=== PATIENT | female | born 1935 | race Caucasian/White ===

== ENCOUNTER → 2018-04-08 | Outpatient (CLI) | payer SELFPAY | END | disposition home or self-care (01) | LOC: LAB 07:45 → LAB SHORT 07:45 | DX: R30.0 Dysuria (principal) | CPT/HCPCS: 87077; 87086; 87186 ==

== ENCOUNTER → 2020-07-18 | Outpatient (CLI) | payer OTHER ==
[2020-07-18 15:22] LABS: Source, Urine Clean Catch
[2020-07-18 16:24] LABS: Appearance, Urine Hazy (Clear); Bilirubin, Urine Neg (Neg); Blood, Urine Neg (Neg); Color, Urine Yellow (P-Yellow); Glucose Qualitative, Urine Neg (Neg); Ketones, Urine Neg (Neg); Leukocyte Esterase, Urine 2+ (Neg); Nitrite, Urine Neg (Neg); Protein, Urine Neg (Neg); Specific Gravity, Urine 1.015 (1.003-1.022); Urobilinogen, Urine NORM (Normal)
[2020-07-18 16:54] LABS: Bacteria Mod /hpf; Red Blood Cells, Urine Not Seen /hpf (0-2); Squamous Epithelial Cells Many /hpf (Few)
== END ==
LOC: OLS 15:20 → LAB SHORT 15:20
PROVIDERS: Internal Medicine
DX: N39.0 Urinary tract infection, site not specified (principal)
CPT/HCPCS: 81001; 87086

== ENCOUNTER → 2022-10-18 | Outpatient (CLI) | payer OTHER | LOC: LAB SHORT 15:42 → LAB 15:42 | DX: N39.0 Urinary tract infection, site not specified (principal) | CPT/HCPCS: 87077; 87086; 87186 ==

== ENCOUNTER 2023-10-27 18:40 | Inpatient (IN) | payer OTHER ==
[~2023-10-27] VITALS: Ht 149.9 cm; Wt 68.5 kg
[2023-10-27 19:24] LABS: BASOPHILS ABSOLUTE AUTO 0.04 K/mm3 (0.00-0.23); BASOPHILS PERCENT AUTO 0 % (0-2); EOSINOPHILS PERCENT AUTO 0 % (0-6); Hematocrit 54.3 % (33.0-51.0); Hemoglobin 17.5 g/dL (11.5-16.0); IMMATURE GRAN ABSOLUTE AUTO 0.16 K/mm3 (0.00-0.10); IMMATURE GRAN PERCENT AUTO 1 % (0-1); LYMPHOCYTES PERCENT AUTO 3 % (21-46); MONOCYTES ABSOLUTE AUTO 2.06 K/mm3 (0.16-1.47); MONOCYTES PERCENT AUTO 9 % (4-13); Mean Corpuscular HGB 28.1 pg (26.0-34.0); Mean Corpuscular HGB Conc 32.2 g/dL (31.5-36.5); Mean Corpuscular Volume 87 fL (80-100); Mean Platelet Volume 11.6 fL (9.1-12.4); NEUTROPHILS ABSOLUTE AUTO 20.66 K/mm3 (1.96-9.15); NEUTROPHILS PERCENT AUTO 87 % (41-73); Platelet Count 294 K/mm3 (150-400); RDW Coefficient Variation 13.3 % (11.7-14.2); RDW Standard Deviation 42.5 fL (35.1-46.3); Red Blood Cell Count 6.22 M/mm3 (3.80-5.20); White Blood Cell Count 23.72 K/mm3 (4.00-11.30)
[2023-10-27 19:37] LABS: Albumin, Blood 3.8 g/dL (3.4-5.0); Albumin/Globulin Ratio 1.2 (0.8-1.8); Bilirubin, Total 1.3 mg/dL (0.1-1.0); Bun/Creatinine Ratio 40.2 (12.0-20.0); Calcium, Blood 9.1 mg/dL (8.5-10.1); Creatinine, Blood 1.12 mg/dL (0.40-1.00); Globulin, Blood 3.3 g/dL (2.2-4.0); Potassium, Blood 4.2 mmol/L (3.5-5.5); Total Protein, Blood 7.1 g/dL (6.4-8.2)
[2023-10-27] MEDS ORDERED: AMLODIPINE BESY10 MG PO (19:55)
[2023-10-27] MEDS ORDERED: BUSPIRONE HCL10 M6 PO (19:55)
[2023-10-27] MEDS ORDERED: CARBLEV250 SL (19:56)
[2023-10-27] MEDS ORDERED: VENLAFAXINE HC225 MG PO (19:56)
[2023-10-27 21:07] LABS: International Normalized Ratio 1.14; Prothrombin Time Results 12.1 Sec (9.7-11.5)
[2023-10-27 21:21] LABS: Albumin, Blood 3.4 g/dL (3.4-5.0); Albumin/Globulin Ratio 1.2 (0.8-1.8); Bilirubin, Direct 0.3 mg/dL (0.0-0.3); Bilirubin, Indirect 0.8 mg/dL (0.1-0.7); Bilirubin, Total 1.1 mg/dL (0.1-1.0); Globulin, Blood 2.8 g/dL (2.2-4.0); Magnesium, Blood 2.1 mg/dL (1.6-2.4); Phosphorus, Blood 3.6 mg/dL (2.5-4.9); Total Protein, Blood 6.2 g/dL (6.4-8.2)
[2023-10-27 21:37] LABS: Source, Urine Clean Catch
[2023-10-27 21:54] LABS: Bilirubin, Urine Neg (Neg); Blood, Urine Neg (Neg); Glucose Qualitative, Urine Neg (Neg); Ketones, Urine 1+ (Neg); Leukocyte Esterase, Urine 1+ (Neg); Nitrite, Urine Neg (Neg); Protein, Urine 2+ (Neg); Urobilinogen, Urine 1+ (Normal)
[2023-10-27 22:09] LABS: Appearance, Urine Hazy (Clear); Color, Urine Yellow (P-Yellow)
[2023-10-27 22:10] LABS: Amorphous Light (0-Heavy); Bacteria Mod /hpf; Red Blood Cells, Urine 0-2 /hpf (0-2); Squamous Epithelial Cells Few /hpf (Few); White Blood Cells, Urine 0-2 /hpf (0-5)
[2023-10-27] MEDS ORDERED: CefTRIAXone Sodium 2,000 MG in NS 100 ML IV ONE (22:20)
[2023-10-27] MEDS ORDERED: Lactated Ringer's 1,000 ML IV SCH (23:00)
[2023-10-27 23:07] LABS: Influenza A, PCR NEGATIVE (NEGATIVE); Influenza B, PCR NEGATIVE (NEGATIVE); Resp Syncytial Virus, PCR NEGATIVE (NEGATIVE); SARS-Cov-2 (COVID-19) PCR, MMC NEGATIVE (NEGATIVE)
[2023-10-28 00:07] LABS: Base Excess Venous -0.5 mmol/L; Bicarbonate Venous 24.2 mmol/L (24.0-30.0); PCO2 Venous 37.6 mmHg (38-42); pH Blood Venous 7.41 (7.34-7.37)
[2023-10-28 01:27] VITALS: BP 137/82
[2023-10-28] MEDS ORDERED: Ondansetron 4 MG SoluTab MM PRN (01:35)
[2023-10-28 03:56] VITALS: BP 146/78
[2023-10-28] MEDS ORDERED: Pantoprazole Sodium 40 MG Injection IV SCH (06:00)
--- NOTE | 2023-10-28 07:21 | NUR ---
Shift Summary Pt arrived to this unit from ED for suspected SBO. The doctor wanted to place an NG tube but pt is refusing for now, wanting to see if the situation will resolve without one. She has advanced parkinson's and demantia, she was non-verbal for me only occasionally offering a yes or no. PT's daugheter who is her caregiver and PoA was at the bedside t/o the night. Pt had some nausea and was given SL Zofran and was able to sleep well t/o the night. She is NPO. She rcvd 1,000 mL of LR last night, the order was for one bag only.
[2023-10-28 08:40] VITALS: BP 142/81
[2023-10-28] MEDS ORDERED: LEVODOPA SL SCH (09:00)
[2023-10-28] MEDS ORDERED: Enoxaparin 40 MG/0.4 ML SYR SC SCH (09:00)
[2023-10-28] MEDS ORDERED: RAPDIS SL SCH (09:00)
[2023-10-28] MEDS ORDERED: CARBIDOPA SL SCH (09:00)
[2023-10-28 13:43] VITALS: BP 120/68
[2023-10-28] MEDS ORDERED: Lactated Ringer's 1,000 ML IV SCH (14:35)
[2023-10-28] MEDS ORDERED: Levodopa/Carbidopa 250 / 25 MG 1 Tab PT SCH (15:00)
--- NOTE | 2023-10-28 18:00 | NUR ---
LATE NOTE SHIFT SUM: 10/28/23 REPORT RECEIEVED VERIFIED PT ISNT A/O RESPONDS TO TOUCH AND WILL GRAB YOUR HAND AT TIMES BUT SO FAR ISNT ACKNOWLOGING OR ANSWERING QUESTIONS. DAUGHTER AT BEDSIDE AND IS AWARE OF CONDITION. DR KIM IN TO SEE PT AND IS CURRENTLY RECOMMENDING HOLD ON SX BECAUSE HAD A BM, WOULD LIKE TO WAIT THROUGH THIS EVENING. PT SO FAR HAS HAD 2 BMS AND HAS HAD POSITIVE BOWEL SOUNDS.. ITS BEEN NOTE AND REPORTED TO MD THAT PT HAS NOT HAD PARKINSON MEDICATION FOR SEVERAL DAY AND BECAUSE PT RISK FOR ASPIRATION SL ORDERED. SL PARKINSON MEDS ARE NOT AVAILABLE SO ITS DECIDED TO TO INSERT NGT. NGT INSERTED AND PT ROBINSON WELL. 150ML GREEN BILE EVACUATED THEN PARKINSON MED GIVEN VIA NGT. SUCTION STOPPED FOR 1 HOUR THEN RESTARTED. BILE ROBINSON 350ML.
[2023-10-28 19:30] VITALS: BP 112/51
[2023-10-28] MEDS ORDERED: NS 250 ML IV PRN (20:55)
[2023-10-28] MEDS ORDERED: CefTRIAXone Sodium 2,000 MG in NS 100 ML IV SCH (21:00)
[2023-10-28] MEDS ORDERED: FentaNYL Citrate 50 MCG/ML 2 ML Injection IV PRN (22:55)
--- NOTE | 2023-10-29 04:53 | NUR ---
SHIFT SUMMARY PT NOT VERY RESPONSIVE BUT AT TIMES WILL ROUSE ENOUGH TO ANSWER QUESTIONS WITH SIMPLE RESPONSE. PT DID NOT OPEN EYES OR PARTICIPATE WITH CARE. PT NPO. NG TUBE SECURED AND REMAINS ON LOW INTERMITENT SUCTION. SCANT AMOUNT OF BROWN LIQUID IN CANISTER. PT REPOSITIONED Q2 HRS AND BRIEF CHANGED PRN. PT REMAINS ON 2L OF OXYGEN. LR INFUSING AT 75ML/HR. DAUGHTER AT BEDSIDE T/O NIGHT. BED IN LOWEST POSITION AND CALL LIGHT IN REACH.
[2023-10-29 05:13] VITALS: BP 144/53
[2023-10-29 06:08] LABS: Hematocrit 42.9 % (33.0-51.0); Hemoglobin 13.6 g/dL (11.5-16.0); Mean Corpuscular HGB 28.1 pg (26.0-34.0); Mean Corpuscular HGB Conc 31.7 g/dL (31.5-36.5); Mean Corpuscular Volume 89 fL (80-100); Mean Platelet Volume 11.9 fL (9.1-12.4); Platelet Count 185 K/mm3 (150-400); RDW Coefficient Variation 13.4 % (11.7-14.2); RDW Standard Deviation 43.8 fL (35.1-46.3); Red Blood Cell Count 4.84 M/mm3 (3.80-5.20)
[2023-10-29 06:32] LABS: Bun/Creatinine Ratio 50.2 (12.0-20.0); Calcium, Blood 8.3 mg/dL (8.5-10.1); Creatinine, Blood 0.82 mg/dL (0.40-1.00); Magnesium, Blood 2.2 mg/dL (1.6-2.4); Potassium, Blood 3.5 mmol/L (3.5-5.5)
[2023-10-29] MEDS ORDERED: Dextrose 5% 1,000 ML IV SCH (08:00)
[2023-10-29 08:23] VITALS: BP 143/68
[2023-10-29] MEDS ORDERED: Miconazole Nitrate 2% 85 GM PWD TOP SCH (09:00)
[2023-10-29] MEDS ORDERED: Levodopa/Carbidopa 250 / 25 MG 1 Tab PT SCH (09:00)
--- NOTE | 2023-10-29 09:00 | NUR ---
pt laying in bed on her side, daughter at bedside, pt is nonresponsive, and limbs are stiff, lungs are dim t/o, unable to participate in assessment, currently on 2 liters 02 via n/c, no cough noted, hrr, 2+ edema noted to b/l le, ppp faint, cap refill <3 sec, vs stable, afebrile, iv site is clear and patent, infusing fluids as ordered, btx3, hypoactive, abd flat soft nontender, purwick in place draining yellow urine, skin c/w/d, limbs are stiff, keeps eyes closed, call light in reach.
[2023-10-29 15:51] VITALS: BP 138/57
--- NOTE | 2023-10-29 18:09 | NUR ---
pt had a bed bath today, is more awake this evening, asked this nurse who are you. reoriented her, no further changes this shift. call light in reach.
[2023-10-29 19:08] VITALS: BP 137/51
[2023-10-30 03:23] VITALS: BP 150/69
[2023-10-30 05:39] LABS: Bun/Creatinine Ratio 33.9 (12.0-20.0); Calcium, Blood 8.2 mg/dL (8.5-10.1); Creatinine, Blood 0.68 mg/dL (0.40-1.00); Magnesium, Blood 2.1 mg/dL (1.6-2.4); Potassium, Blood 3.2 mmol/L (3.5-5.5)
[2023-10-30 07:11] VITALS: BP 163/67
[2023-10-30] MEDS ORDERED: Potassium Chloride 40 MEQ in NS 250 ML IV ONE (11:00)
[2023-10-30 15:38] VITALS: BP 151/82
[2023-10-30] MEDS ORDERED: VENL150ER PO (16:09)
--- NOTE | 2023-10-30 17:53 | NUR ---
SHIFT SUMMARY PATIENT ALERT AND ORIENTED TO SELF AND FAMILY. PATIENT WOKE UP MORE IN THE AFTERNOON AND WAS ABLE TO TALK WITH STAFF AND DAUGHTER. DAUGHTER AT BEDSIDE FOR WHOLE SHIFT. PATIENT IS NPO. PATIENT HAS NG CONNECTED TO LIS. PATIENT DENIES PAIN, NAUSEA AND SHORTNESS OF BREATH. PATIENT WENT FOR A SMALL BOWEL FOLLOW THROUGH TODAY. PATIENT HAS 2 VERY LARGE LOOSE BM'S AFTER STUDY WAS DONE. PATIENT IS PLEASANT AND COOPERATIVE WITH CARE.
[2023-10-30 19:22] VITALS: BP 150/78
[2023-10-31 03:45] VITALS: BP 178/81
[2023-10-31 06:17] LABS: Bun/Creatinine Ratio 26.3 (12.0-20.0); Calcium, Blood 8.4 mg/dL (8.5-10.1); Creatinine, Blood 0.61 mg/dL (0.40-1.00); Magnesium, Blood 2.1 mg/dL (1.6-2.4); Potassium, Blood 3.8 mmol/L (3.5-5.5)
--- NOTE | 2023-10-31 07:54 | NUR ---
NOC SHIFT SUMMARY PT HAD SEVERAL LOOSE BOWEL MOVEMENTS AFTER SMALL BOWEL FOLLOW THROUGH YESTERDAY. BOWEL MOVEMENTS WERE LOOSE, BUT NOT WATERY. NG TUBE TO LIS, OUTPUT IS DARK, OUTPUT IN MINIMAL. ANTICIPATING POSSIBLE DIET ADVANCEMENT TODAY. PT WAS TURNED AND CLEANED/CHANGED EVERY 2 HOURS AND REQUIRES MAX ASSIST OF 2 PEOPLE. DAUGHTER BRANDEE AT BEDSIDE ALL SHIFT AND PROVIDES PT COMFORT.
[2023-10-31] MEDS ORDERED: Dextrose 5% 1,000 ML IV SCH (08:00)
[2023-10-31 08:03] VITALS: BP 153/67
[2023-10-31] MEDS ORDERED: Levodopa/Carbidopa 250 / 25 MG 1 Tab PO SCH (13:00)
[2023-10-31 15:47] VITALS: BP 152/98
--- NOTE | 2023-10-31 17:47 | NUR ---
SHIFT SUMMARY PATIENT A/OX3 WITH SOFT MUMBLED SPEECH. ABLE TO ANSWER QUESTIONS APPROPRIATELY THIS SHIFT. PATIENT REMOVED FROM SUPPLEMENTAL OXYGEN TODAY, SPO2 WNL ON ROOM AIR. PATIENT DENIES SOB. NG TUBE REMOVED THIS AM. PUREWICK PLACED, PATIENT INCONTINENT OF BOWEL AND BLADDER. SPEECH TEHRAPY EVALUATED PATIENT TODAY AND NEW ORDERS RECIEVED FOR MINCED AND MOIST DIET, NECTAR THICK FLUIDS, PILLS CRUSHED IN APPLESAUCE. PATIENT REPOSITIONED Q 2 HOURS. DAUGHTER, BRANDEE, AT BEDSIDE. IV FLUIDS RUNNING PER MAY. PLAN TO HAVE BARIUM SWALLOW STUDY TOMORROW. PHYSICAL THERAPY EVALUATED PATIENT TODAY. NO OTHER CONCERNS AT THIS TIME.
[2023-10-31 19:40] VITALS: BP 154/87
[2023-11-01] MEDS ORDERED: LORazepam 2 MG/ML 1ML Injection IV PRN (00:15)
[2023-11-01] MEDS ORDERED: Venlafaxine HCl 75 MG CapCR PO SCH (00:20)
[2023-11-01] MEDS ORDERED: BusPIRone HCl 10 MG Tab PO SCH (00:24)
--- NOTE | 2023-11-01 01:06 | NUR ---
PT WAS VERY AGGITATED, CALLING OUT AND RESTLESS. HER DAUGHTER INDICATED SHE'D MISSED EFFEXOR AND BUSPAR FOR MANY DAYS. MADE AWARE. ATIVAN 0.5-1MG IV Q4P ORDERED ALONG W/EFFEXOR AND BUSPAR PER HOME DOSING. MEDS RECEIVED PER EMAR AND PT NOW RESTING MUCH MORE COMFORTABLY IN BED.
[2023-11-01 02:46] VITALS: BP 145/71
[2023-11-01 06:02] LABS: Bun/Creatinine Ratio 20.9 (12.0-20.0); Calcium, Blood 8.4 mg/dL (8.5-10.1); Creatinine, Blood 0.67 mg/dL (0.40-1.00); Potassium, Blood 3.3 mmol/L (3.5-5.5)
--- NOTE | 2023-11-01 06:29 | NUR ---
SUMMARY: PT A/OX2-3 AND IS PLEASANT AND COOPERATIVE W/CARE BUT SHE BECAME MORE ALERT, AGGITATED AND RESTLESS THIS SHIFT. SHE WAS CALLING INTO HALLS OFTEN, REQ'D REPEATED REMINDERS AND WAS DIFFICULT TO CALM W/EXPLANATION. FAMILY REPORTED MANY MISSED DOSES OF EFFEXOR AND BUSPAR LIKELY CONTRIBUTING TO ANXIETY/CONFUSION. PT RESTARTED ON THESE HOME MEDS AND IV ATIVAN WAS RX'D AND RECEIVED FOR CALMING AFFECT. SHE HAS SLEPT COMFORTABLY W/O S/S DISTRESS SINCE, AWAKING BRIEFLY FOR CARE THEN RETURNING TO REST. PT HAS PUREWIC IN PLACE AND ATTENDS WERE CHANGED PRN FOR STOOL INCONTINENCE. Q2H TURN SCHEDULE MAINTAINED AND RX POWDER APPLIED TO RASHY GROIN AND ALMA DELIA AREA. ZOFRAN RECEIVED X1 FOR TOLERABLE RELIEF OF NAUSEA. BARRIUM SWALLOW STUDY PLANNED FOR TODAY. NO ACUTE CHANGES, VSS/AFEBRILE. WCTM AND REPORT TO DAY RN.
[2023-11-01 07:11] VITALS: BP 142/78
[2023-11-01] MEDS ORDERED: Potassium Chloride 20 MEQ/15 ML UDC PO ONE (08:00)
--- NOTE | 2023-11-01 13:28 | NUR ---
Have been kicked out of the system for a while today, have been writing written notes... 12:30 family present when I brought in Lunch tray, assist to reposition her and they took over after.
[2023-11-01] MEDS ORDERED: Losartan Potassium 25 MG Tab PO SCH (15:00)
[2023-11-01 16:01] VITALS: BP 145/71
--- NOTE | 2023-11-01 16:23 | NUR ---
DISCUSSED CASE WITH CASE MANAGMENT AND BEDSIDE RN. PATIENT ASLEEP UPON ROUNDING. PC WILL REAMIN AVALIABLE.
[2023-11-01 20:39] VITALS: BP 149/75
[2023-11-02 02:06] VITALS: BP 153/80
--- NOTE | 2023-11-02 04:49 | NUR ---
SHIFT SUMMARY PATIENT HAD NO ACUTE CHANGES. ALERT TO SELF WITH CONFUSION AND BEDREST. TAKES MEDS CRUSHED IN APPLE SAUCE. PIV INTACT. 5% DEXTROSE INFUSING @ 75 mL/HR. DENIES CHEST PAIN, SOB, AND N/V. VSS/AFEBRILE. PUREWICK IN PLACE. DAUGHTER STAYS IN ROOM T/O SHIFT. CALL LIGHT IN REACH. BED IN LOWEST POSITION. WILL CONTINUE TO MONITOR UNTIL DAY SHIFT NURSE ASSUMES CARE.
[2023-11-02 07:08] VITALS: BP 157/96
[2023-11-02] MEDS ORDERED: Losartan Potassium 50 MG Tab PO SCH (09:00)
[2023-11-02 10:07] LABS: Bun/Creatinine Ratio 12.8 (12.0-20.0); Calcium, Blood 8.8 mg/dL (8.5-10.1); Creatinine, Blood 0.63 mg/dL (0.40-1.00); Potassium, Blood 3.5 mmol/L (3.5-5.5)
[2023-11-02] MEDS ORDERED: LOSA50 PO (10:38)
[2023-11-02] MEDS ORDERED: MICONAZOLE NIT130 GM TOP (10:38)
[2023-11-02] MEDS ORDERED: FT SENNA-S 8.61 EACH PO (10:39)
[2023-11-02] MEDS ORDERED: DULCOLAX400 MG/5 M PO (10:45)
[2023-11-02] MEDS ORDERED: MIRALAX17 GM PO (10:46)
[2023-11-02] MEDS ORDERED: VENL75ER PO (10:46)
--- NOTE | 2023-11-02 15:19 | NUR ---
[facility] TO BE PICKED UP AT 430 PM, DISCAHRGE INSTRUCTIONS TO DAUGHTER, DAUGHTER STATED UNDERSTING OF DISCHARGE INSTRUCTIONS, MEDICATIONS, AND FOLLOW UP. DAUGHTER DENIED FURTHER QUESTIONS, PATIENT BEING DRESSED FOR DISCHARGE NOW
--- NOTE | 2023-11-02 16:38 | NUR ---
DISCHARGED [facility] VIA TRANSPORT, PLEASANT TO CARE, DAUGHTER PRIMARY CARE
== END 2023-11-02 16:19 | disposition home health service (06) | DRG 388 ==
LOC: ER 18:40 → MEDS 18:41 → ERHOLD 18:41 → MEDS 10-28 01:16
PROVIDERS: Internal Medicine; Student in an Organized Health Care Education/Training Program; ADMIT Family Medicine
PROC: 0D9670Z Drainage of Stomach with Drainage Device, Via Natural or Artificial Opening (ICD-10-PCS; principal; 2023-10-27)
DX: K56.609 Unspecified intestinal obstruction, unspecified as to partial versus complete obstruction (principal); G92.8 Other toxic encephalopathy; E87.1 Hypo-osmolality and hyponatremia; E87.0 Hyperosmolality and hypernatremia; F03.94 Unspecified dementia, unspecified severity, with anxiety; G20.A1 Parkinson's disease without dyskinesia, without mention of fluctuations; F02.80 Dementia in other diseases classified elsewhere, unspecified severity, without behavioral disturbance, psychotic disturbance, mood disturbance, and anxiety; E87.6 Hypokalemia; J44.9 Chronic obstructive pulmonary disease, unspecified; I10 Essential (primary) hypertension; Z66 Do not resuscitate; Z88.5 Allergy status to narcotic agent; Z79.899 Other long term (current) drug therapy; D75.1 Secondary polycythemia; Z74.01 Bed confinement status; E86.0 Dehydration
CPT/HCPCS: 0241U; 36415; 71260; 74177; 74230; 74250; 80048; 80053; 80076; 81001; 82803; 83605; 83690; 83735; 83880; 84100; 84145; 84295; 84484; 85025; 85027; 85610; 85730; 87040; 87086; 92610; 92611; 93005; 93010; 94760; 94762; 96365; 96375; 97110; 97163; 97530; 99285-25; A9270; G0378; J0696; J1650; J2060; J2470; J3480; J7050; J7070; J7120; P9612; Q9967

== ENCOUNTER → 2023-11-24 | Outpatient (CLI) | payer OTHER ==
[~2023-11-24] MED LIST: AMLODIPINE BESY10 MG PO; BUSPIRONE HCL10 M6 PO; CARBLEV250 SL; DULCOLAX400 MG/5 M PO; FT SENNA-S 8.61 EACH PO; LOSA50 PO; MICONAZOLE NIT130 GM TOP; MIRALAX17 GM PO; VENL150ER PO; VENL75ER PO; VENLAFAXINE HC225 MG PO
[2023-11-24 18:04] LABS: Source, Urine Voided
[2023-11-24 19:31] LABS: Calcium Oxalate Crystals Few /hpf
[2023-11-24 19:32] LABS: Amorphous Heavy (0-Heavy)
[2023-11-24 19:33] LABS: Bacteria Few /hpf; Red Blood Cells, Urine 0-2 /hpf (0-2); Squamous Epithelial Cells Few /hpf (Few)
== END ==
LOC: LAB 18:02 → LAB SHORT 18:02
PROVIDERS: Internal Medicine
DX: N39.0 Urinary tract infection, site not specified (principal)
CPT/HCPCS: 81015; 87086

== ENCOUNTER 2024-09-16 | Inpatient (IN) | payer OTHER ==
[~2024-09-16] VITALS: Ht 157.5 cm; Wt 59.0 kg
[2024-09-16] MEDS ORDERED: CefTRIAXone Sodium 1,000 MG in NS 100 ML IV ONE (00:20)
[2024-09-16] MEDS ORDERED: NS 1,000 ML IV SCH (00:20)
[2024-09-16 00:26] LABS: BASOPHILS ABSOLUTE AUTO 0.06 K/mm3 (0.00-0.23); BASOPHILS PERCENT AUTO 0 % (0-2); EOSINOPHILS ABSOLUTE AUTO 0.00 K/mm3 (0.00-0.68); EOSINOPHILS PERCENT AUTO 0 % (0-6); Hemoglobin 19.5 g/dL (11.5-16.0); IMMATURE GRAN ABSOLUTE AUTO 0.12 K/mm3 (0.00-0.10); IMMATURE GRAN PERCENT AUTO 1 % (0-1); LYMPHOCYTES ABSOLUTE AUTO 1.70 K/mm3 (0.84-5.20); LYMPHOCYTES PERCENT AUTO 8 % (21-46); MONOCYTES ABSOLUTE AUTO 1.15 K/mm3 (0.16-1.47); MONOCYTES PERCENT AUTO 6 % (4-13); Mean Corpuscular HGB Conc 30.7 g/dL (31.5-36.5); Mean Corpuscular Volume 91 fL (80-100); NEUTROPHILS ABSOLUTE AUTO 17.23 K/mm3 (1.96-9.15); NEUTROPHILS PERCENT AUTO 85 % (41-73); NRBC ABSOLUTE 0.00 K/mm3 (0.00-0.02); NRBC Auto 0.0 /100 WBC (0.0-0.2); Platelet Count 326 K/mm3 (150-400); RDW Coefficient Variation 13.6 % (11.7-14.2); RDW Standard Deviation 44.8 fL (35.1-46.3)
[2024-09-16 00:32] LABS: Hematocrit 63.6 % (33.0-51.0)
[2024-09-16 00:41] LABS: pH Blood Venous 7.06 (7.34-7.37)
[2024-09-16 00:52] LABS: Alanine Aminotransfer (ALT/SGP 20.0 U/L (12-78); Albumin, Blood 4.3 g/dL (3.4-5.0); Albumin/Globulin Ratio 1.1 (0.8-1.8); Anion Gap 20.0 mmol/L (3-11); Aspartate Aminotrans (AST/SGOT 22.0 U/L (12-37); Bilirubin, Total 1.1 mg/dL (0.1-1.0); Blood Urea Nitrogen 27.0 mg/dL (8-24); CO2, Blood 16.0 mmol/L (21-32); Calcium, Blood 10.4 mg/dL (8.5-10.1); Chloride, Blood 109.0 mmol/L (98-108); Creatinine, Blood 1.87 mg/dL (0.40-1.00); Globulin, Blood 3.9 g/dL (2.2-4.0); Glucose, Blood 187.0 mg/dL (70-99); Potassium, Blood 3.5 mmol/L (3.5-5.5); Sodium, Blood 141.0 mmol/L (136-145); Thyroid Stimulating Hormone 8.46 uIU/mL (0.360-4.800); Total Protein, Blood 8.2 g/dL (6.4-8.2)
[2024-09-16] MEDS ORDERED: Ondansetron HCl 2 MG / ML 2ML Vial IV PRN (01:40)
[2024-09-16] MEDS ORDERED: Ampicillin Sod/Sulbactam Sod 3 GM in NS 100 ML IV SCH (02:04)
[2024-09-16] MEDS ORDERED: Sodium Bicarb 8.4% Inj 150 MEQ in Dextrose 5% 1,000 ML IV ONE (02:10)
[2024-09-16] MEDS ORDERED: Morphine Sulfate 20 MG/1ML 1 ML Oral Syringe PO ONE (04:16)
[2024-09-16] MEDS ORDERED: Morphine Sulfate 20 MG/1ML 1 ML Oral Syringe SL ONE (06:00)
[2024-09-16] MEDS ORDERED: Midazolam HCl 1MG / ML 2ML Vial IV PRN (06:30)
[2024-09-16 08:30] VITALS: BP 71/13
[2024-09-16] MEDS ORDERED: Lactobacil 2-S.Thermo-Bifido 1 1 Cap PO SCH (09:00)
[2024-09-16] MEDS ORDERED: Morphine Sulfate 20 MG/1ML 1 ML Oral Syringe SL PRN (09:40)
[2024-09-16] MEDS ORDERED: Atropine Sulfate 1% Opth Soln 2ML BTL SL PRN (09:40)
[2024-09-16] MEDS ORDERED: Morphine Sulfate 10 MG/ML 1MLSYR IV PRN (09:40)
[2024-09-16] MEDS ORDERED: Diazepam 5 MG / ML 2ML SYR IV PRN (09:45)
--- NOTE | 2024-09-16 09:50 | NUR ---
PALLIATIVE CARE VISIT: CALLED TO ROOM BY RN DUE TO PT STATUS/DECLINE. REVIEWED MEDICAL RECORD PRIOR TO VISIT. MET WITH DAUGHTER BRANDEE IN THE ROOM./ DISCUSSED CARE OPTIONS WITH DAUGHTER. DAUGHTER CHOSE COMFORT CARE MEASURES AT THIS TIME. PT BP 69/16. HIGH EFFORT RESPIRATORY STATUS ALTHOUGH ON HIGH FLOW O2. PT IS DIAPHORETIC. CALLED DR. HAMPTON FOR COMFORT ORDERS AND HE REQUESTED ORDERS TO BE PLACED. IV MORPHINE AND VALIUM ORDERED FOR COMFORT DUE TO RESPIRATORY EFFORT.
--- NOTE | 2024-09-16 11:40 | NUR ---
Spiritual care visit conducted. Just prior to the withdrawal of care I arrived at ER[facility]. Patient is nonresponsive and the patient's dtr, Julissa and Gdtr Halle are present. I conduct a life review and present a calming presence. At TOD, I provided a prayer and then extend grief support to Julissa and Halle for quite some time until I walked them out to the parking lot. They showed signs of being comforted.
== END 2024-09-16 10:24 | DRG 871 ==
LOC: ER → ERHOLD 01:36 → EDBEDREQ 02:42 → EDBEDREQSVC 02:42 → ERHOLD 10:24
PROVIDERS: Emergency Medicine; ADMIT Student in an Organized Health Care Education/Training Program
PROC: 3E03329 Introduction of Other Anti-infective into Peripheral Vein, Percutaneous Approach (ICD-10-PCS; principal; 2024-09-16)
PROC: 3E033XZ Introduction of Vasopressor into Peripheral Vein, Percutaneous Approach (ICD-10-PCS; 2024-09-16)
PROC: 5A0935A Assistance with Respiratory Ventilation, Less than 24 Consecutive Hours, High Flow/Velocity Cannula (ICD-10-PCS; 2024-09-16)
DX: A41.9 Sepsis, unspecified organism (principal); J18.9 Pneumonia, unspecified organism; J69.0 Pneumonitis due to inhalation of food and vomit; J96.01 Acute respiratory failure with hypoxia; R65.21 Severe sepsis with septic shock; J96.02 Acute respiratory failure with hypercapnia; E87.21 Acute metabolic acidosis; N17.9 Acute kidney failure, unspecified; J44.0 Chronic obstructive pulmonary disease with (acute) lower respiratory infection; J44.1 Chronic obstructive pulmonary disease with (acute) exacerbation; Z51.5 Encounter for palliative care; Z66 Do not resuscitate; I10 Essential (primary) hypertension; G20.A1 Parkinson's disease without dyskinesia, without mention of fluctuations; F02.80 Dementia in other diseases classified elsewhere, unspecified severity, without behavioral disturbance, psychotic disturbance, mood disturbance, and anxiety; E86.0 Dehydration; D75.1 Secondary polycythemia; Z88.5 Allergy status to narcotic agent
CPT/HCPCS: 36415; 71045; 80053; 82803; 83605; 83880; 84145; 84443; 84484; 85025; 93005; 93010; 96365; 96366; 96367; 96376-59; 99285-25; A9270; J0295; J0456; J0696; J2250; J2270; J3360; J7030; J7050; J7060; J7070; J7120